=== PATIENT | male | born 1940 | race Caucasian/White ===

== ENCOUNTER → 2017-11-09 | Outpatient (CLI) | payer MEDICARE ==
[~2017-11-09] MED LIST: AMIO200; ASPI325; ASPI81EC; ASPI81EC PO; ATEN25; ATOR10; CALGLU500 PO; CARV3.125; CHANTIX; CHOL10002 PO; CITA20 PO; CLOP75; CODBUTACEC PO; Calcium Glucon500 MG PO; Celexa40 MG PO; DIGO.125; DOCU100 PO; DONE10 PO; DULERA 200 MCG/13 GM INH; FENT50TP TOP; FENT75TP TOP; FENTANYL PATCH TD; FOLI1; FURO20; Flovent Diskus50 MCG IH; LEVFLO500 PO; LISI10; LISI5; LORA.5; LORA.5 PO; LORA1; LOSA25; LOSA50; MAGCHL64ER; MAGGLU250 PO; MAGOXI400 PO; METO100ER; METO50ER; MYCO250 PO; NICO7; NITR.4SL; OXYC5 PO; PRAV40 PO; PRED5 PO; QUIN324; RANI150 PO; Roxicodone5 MG PO; SPIR25; TACR1; TRAZ50 PO; WARF2; WARF2.5 PO; WARF5 PO; WARF6; XARELTO20 MG PO; [UNRECOGNIZED DRUG - OTHER]
== END | disposition home or self-care (01) ==
LOC: PLD 11:18 → LAB SHORT 11:18
DX: D48.5 Neoplasm of uncertain behavior of skin (principal)
CPT/HCPCS: 88305

== ENCOUNTER 2018-03-02 09:13 | Emergency (ER) | payer MEDICARE ==
[~2018-03-02] VITALS: Ht 167.6 cm; Wt 55.8 kg
[~2018-03-02 09:13] MED LIST changes: -DONE10 PO; -Roxicodone5 MG PO; -XARELTO20 MG PO
[2018-03-02 09:43] LABS: BASOPHILS ABSOLUTE AUTO 0.03 K/mm3 (0.00-0.23); BASOPHILS PERCENT AUTO 0 % (0-2); EOSINOPHILS ABSOLUTE AUTO 0.08 K/mm3 (0.00-0.68); EOSINOPHILS PERCENT AUTO 1 % (0-6); Hematocrit 39.4 % (37.0-53.0); Hemoglobin 12.3 g/dL (13.5-17.5); IMMATURE GRAN PERCENT AUTO 1 % (0-1); LYMPHOCYTES ABSOLUTE AUTO 1.13 K/mm3 (0.84-5.20); LYMPHOCYTES PERCENT AUTO 11 % (21-46); MONOCYTES ABSOLUTE AUTO 0.71 K/mm3 (0.16-1.47); MONOCYTES PERCENT AUTO 7 % (4-13); Mean Corpuscular HGB 26.5 pg (26.0-34.0); Mean Corpuscular HGB Conc 31.2 g/dL (31.5-36.5); Mean Corpuscular Volume 85 fL (80-100); Mean Platelet Volume 9.6 fL (9.1-12.4); NEUTROPHILS PERCENT AUTO 80 % (41-73); Platelet Count 208 K/mm3 (150-400); RDW Coefficient Variation 14.6 % (11.7-14.2); RDW Standard Deviation 44.7 fL (35.1-46.3); Red Blood Cell Count 4.64 M/mm3 (4.30-5.90); White Blood Cell Count 10.25 K/mm3 (4.00-11.30)
[2018-03-02 10:08] LABS: Albumin, Blood 2.9 g/dL (3.4-5.0); Albumin/Globulin Ratio 0.7 (0.8-1.8); Bilirubin, Total 0.3 mg/dL (0.1-1.0); Calcium, Blood 13.1 mg/dL (8.5-10.1); Creatinine, Blood 1.5 mg/dL (0.60-1.20); Potassium, Blood 3.9 mmol/L (3.5-5.5); Total Protein, Blood 6.9 g/dL (6.4-8.2)
[2018-03-02] MEDS ORDERED: XARELTO20 MG PO (10:36)
[2018-03-02] MEDS ORDERED: DONE10 PO (10:37)
[2018-03-02] MEDS ORDERED: Roxicodone5 MG PO (11:44)
== END 2018-03-02 12:36 | disposition home or self-care (01) ==
LOC: ER 09:13
PROVIDERS: Emergency Medicine
DX: S41.112A Laceration without foreign body of left upper arm, initial encounter (principal); S00.03XA Contusion of scalp, initial encounter; E83.52 Hypercalcemia; W01.198A Fall on same level from slipping, tripping and stumbling with subsequent striking against other object, initial encounter; Z88.0 Allergy status to penicillin; Z79.899 Other long term (current) drug therapy; Z79.891 Long term (current) use of opiate analgesic; Z79.01 Long term (current) use of anticoagulants; Z87.891 Personal history of nicotine dependence; I25.2 Old myocardial infarction; Z85.118 Personal history of other malignant neoplasm of bronchus and lung
CPT/HCPCS: 70450; 72100; 72125; 80053; 85025; J3010